=== PATIENT | female | born 2005 | race Caucasian/White ===

== ENCOUNTER → 2023-05-25 | Outpatient (CLI) | payer OTHER ==
[2023-05-25 09:48] LABS: BASO # 0.04 K/mm3 (0.02-0.10); EOS # 0.11 K/mm3 (0.04-0.40); EOS % 1.4 % (0.1-4.0); HEMATOCRIT 39.5 % (35.0-45.0); LYMPH# 2.61 K/mm3 (1.20-3.40); MEAN CELL VOLUME 93 fl (78-95); MEAN CORPUSCULAR HEMOGLOBIN 31 pg (26-32); MEAN CORPUSCULAR HGB CONC 33 g/dL (33-37); MEAN PLATELET VOLUME 10.9 fl (7.4-10.4); MONO # 0.56 K/mm3 (0.10-0.60); NEU # 4.48 K/mm3 (1.40-6.50); PLATELET COUNT 281 K/mm3 (130-400); RED BLOOD COUNT 4.23 M/mm3 (4.10-5.30); RED CELL DISTRIBUTION WIDTH 13.1 % (11.5-14.5); WHITE BLOOD COUNT 7.8 K/mm3 (4.8-10.8)
[2023-05-25 09:52] LABS: ALBUMIN 4.3 g/dL (3.5-5.0)
[2023-05-25 09:54] LABS: CALCIUM 9.5 mg/dL (8.3-10.5)
[2023-05-25 09:55] LABS: TOTAL PROTEIN 6.8 g/dL (6.4-8.3)
[2023-05-25 09:57] LABS: TOTAL BILIRUBIN 0.2 mg/dL (0.2-1.2)
== END ==
LOC: AMSURD 09:28 → LAB 09:28
PROVIDERS: Internal Medicine
DX: R55 Syncope and collapse (principal)